=== PATIENT | male | born 1950 | race Caucasian/White ===

== ENCOUNTER 2017-04-15 08:07 | Emergency (ER) | payer BC, MEDICARE ==
[~2017-04-15] VITALS: Ht 175.3 cm; Wt 118.9 kg
[2017-04-15] MEDS ORDERED: ASPIRIN 81 MG CHEW TABLET PO ONE (08:30)
[2017-04-15 08:47] LABS: BASO % 0.5 % (0.0-1.0); EOS # 0.2 K/mm3 (0.0-0.50); EOS % 2.6 % (0.0-3.0); LARGE UNSTAINED CELL # 0.1 K/mm3 (0.0-0.4); LYMPH # 1.1 K/mm3 (1.5-4.5); LYMPH % 19.6 % (24.0-44.0); MEAN CORPUSCULAR HEMOGLOBIN 33.8 pg (27.0-33.0); MEAN CORPUSCULAR VOLUME 90.4 fl (80.0-96.0); MONO # 0.3 K/mm3 (0.0-0.8); MONO % 6.2 % (0.0-5.0); NEUTROPHILS # 3.8 K/mm3 (1.8-7.7); NEUTROPHILS % 69.1 % (36.0-66.0); PLATELET COUNT, AUTOMATED 147 k/mm3 (150-450); RED CELL DISTRIBUTION WIDTH 12.5 % (11.5-14.5); WHITE BLOOD COUNT 5.5 K/mm3 (4.0-10.0)
[2017-04-15 08:54] LABS: MEAN CORPUSCULAR HGB CONC 37.4 g/dl (32.0-36.5)
[2017-04-15] MEDS ORDERED: IRBE300T10 PO (09:11)
[2017-04-15] MEDS ORDERED: ROSU10TA2 PO (09:11)
[2017-04-15] MEDS ORDERED: ASPI325T24 PO (09:11)
[2017-04-15] MEDS ORDERED: NITR0.4S14 PO (09:11)
[2017-04-15] MEDS ORDERED: MULTTAB50 PO (09:11)
[2017-04-15] MEDS ORDERED: METO50TA7 PO (09:11)
[2017-04-15] MEDS ORDERED: VITA-115 PO (09:11)
[2017-04-15] MEDS ORDERED: ALPR0.5T3 PO (09:11)
[2017-04-15] MEDS ORDERED: LOSARTAN/HCT PO (09:11)
[2017-04-15 09:14] LABS: ALBUMIN 3.6 GM/DL (3.2-5.2); ALBUMIN/GLOBULIN RATIO 1.09 (1.00-1.93); ALKALINE PHOSPHATASE 58 U/L (45-117); ALT/SGPT 60 U/L (12-78); ANION GAP 10 MEQ/L (8-16); AST/SGOT 42 U/L (15-37); BILIRUBIN,DIRECT 0.2 MG/DL (0.0-0.2); BILIRUBIN,TOTAL 0.8 MG/DL (0.2-1.0); BLOOD UREA NITROGEN 16 MG/DL (7-18); CALCIUM LEVEL 8.3 MG/DL (8.8-10.2); CARBON DIOXIDE LEVEL 26 MEQ/L (21-32); CHLORIDE LEVEL 108 MEQ/L (98-107); CREATININE FOR GFR 0.88 MG/DL (0.70-1.30); GLOMERULAR FILTRATION RATE > 60.0 (>49); GLUCOSE, FASTING 143 MG/DL (80-110); POTASSIUM SERUM 3.8 MEQ/L (3.5-5.1); SODIUM LEVEL 144 MEQ/L (136-145); TOTAL PROTEIN 6.9 GM/DL (6.4-8.2)
[2017-04-15] MEDS ORDERED: ISOVUE-370 76% 100ML VIAL (Q9967) As Ordered ONE (09:21)
--- NOTE | 2017-04-15 09:24 | REP ---
TWO VIEW CHEST: No comparison. Two views of the chest are performed. There is mild bibasilar fibroatelectatic change. No infiltrate is seen. There is mild cardiomegaly. There is tortuosity of the thoracic aorta. The mediastinal silhouette is otherwise unremarkable. There are mild degenerative changes of the spine. IMPRESSION: Mild cardiomegaly and bibasilar fibroatelectatic change. No acute infiltrate. Signed by Ant Sauer MD 04/15/2017 09:42 A
[2017-04-15] MEDS ORDERED: HEPARIN DRIP 25,000 UNITS in APPROPRIATE DILUENT 1 EA IV SCH (09:41)
[2017-04-15] MEDS ORDERED: HEPARIN SOD (PORCINE) 5000 UNITS/ML VIAL IV ONE (09:45)
[2017-04-15] MEDS ORDERED: HEPARIN 25,000 UNITS/250 ML D5W BAG (100 UNITS/ML) As Ordered ONE (09:45)
[2017-04-15 10:22] VITALS: BP 164/93
--- NOTE | 2017-04-16 07:54 | ECGEPIP ---
Stationary ECG Study [facility] - ED Test Date: 2017-04-15 Pat Name: COLE ARANDA Department: Room: - Gender: M Rn Clinical Appeals: lore : 1950 Requested By: YULIA Khan Order Number: [id number] Reading MD: Evelyn Pradhan Measurements Intervals [place] Rate: 58 P: 48 KS: 216 QRS: -51 QRSD: 86 T: 61 QT: 400 QTc: 395 Interpretive Statements SINUS BRADYCARDIA WITH FIRST DEGREE AV BLOCK PATTERN CONSISTENT WITH PULMONARY DISEASE LEFT ANTERIOR FASCICULAR BLOCK INFERIOR MYOCARDIAL INFARCTION, PROBABLY OLD NO PRIOR FOR COMPARISON Electronically Signed On 04-16-2017 7:54:45 EDT by Evelyn Pradhan
== END 2017-04-15 10:29 | disposition short-term general hospital (02) ==
LOC: EDBD 08:07 → M ED 08:07 → EDSEX 08:07 → M ED 10:29
DX: I21.4 Non-ST elevation (NSTEMI) myocardial infarction (principal); I10 Essential (primary) hypertension; E78.4 Other hyperlipidemia; Z98.61 Coronary angioplasty status; Z87.891 Personal history of nicotine dependence; R06.02 Shortness of breath